=== PATIENT | male | born 1980 | race Caucasian/White ===

== ENCOUNTER 2019-06-05 07:14 | Inpatient (IN) ==
[2019-06-05 08:23] LABS: Basophils % 0.4 %; Eosinophils # 0.2 K/mcL (0.0-0.6); Eosinophils % 4.2 %; Hematocrit 36.5 % (37.5-50.1); Hemoglobin 12.8 g/dL (12.9-16.9); Immature Granulocytes % 0.4 % (0-4); Lymphocytes # 0.9 K/mcL (0.6-4.6); Mean Corpuscular HGB Conc 35.1 g/dL (31.6-35.5); Mean Corpuscular Hemoglobin 30.8 pg (28.0-33.3); Mean Corpuscular Volume 87.7 fL (83.0-100.0); Mean Platelet Volume 12.8 fL (9.4-12.4); Monocytes # 0.5 K/mcL (0.0-1.3); Monocytes % 8.5 %; Platelet Count 63 K/mcL (140-400); Red Blood Count 4.16 M/mcL (4.19-5.50); Red Cell Distribution Width 14.2 % (11.5-14.5); Segmented Neutrophils % 70.5 %; White Blood Count 5.7 K/mcL (4.3-11.1)
[2019-06-05 08:39] LABS: BUN/Creatinine Ratio 19 (6-26); Blood Urea Nitrogen 13 mg/dL (6-20); Calcium 8.9 mg/dL (8.6-10.3); Carbon Dioxide 24 mEq/L (23-29); Chloride 102 mEq/L (98-107); Glucose 123 mg/dL (70-105); Osmolality,Calculated 275 (280-300); Potassium 3.9 mEq/L (3.5-5.1); Sodium 132 mEq/L (136-145); eGFR For African Americans > 60 (> 60); eGFR For Non-African Americans > 60 (> 60)
[2019-06-05] MEDS ORDERED: Naloxone 0.4 MG/ML INJ IVP PRN (09:35)
[2019-06-05] MEDS ORDERED: Ketorolac 15 MG/ML VIAL IVP PRN (09:35)
[2019-06-05] MEDS ORDERED: Ondansetron 4 MG/2 ML VIAL IVP PRN (09:35)
[2019-06-05] MEDS: Nicotine 14 MG PATCH.TD24 TD SCH (14:06)
[2019-06-06 06:42] LABS: Hemoglobin 12.4 g/dL (12.9-16.9); Mean Corpuscular Hemoglobin 30.6 pg (28.0-33.3); Red Blood Count 4.05 M/mcL (4.19-5.50)
[2019-06-06 06:44] LABS: Basophils % 0.3 %; Eosinophils # 0.2 K/mcL (0.0-0.6); Eosinophils % 4.4 %; Hematocrit 35.4 % (37.5-50.1); Immature Granulocytes % 0.3 % (0-4); Immature Platelets 12.4 % (1.1-6.1); Lymphocytes # 0.8 K/mcL (0.6-4.6); Lymphocytes % 19.8 %; Mean Corpuscular Volume 87.4 fL (83.0-100.0); Mean Platelet Volume 12.9 fL (9.4-12.4); Monocytes # 0.4 K/mcL (0.0-1.3); Monocytes % 10.8 %; Neutrophils # 2.5 K/mcL (1.6-8.9); Platelet Count 56 K/mcL (140-400); Red Cell Distribution Width 14.1 % (11.5-14.5); Segmented Neutrophils % 64.4 %; White Blood Count 3.9 K/mcL (4.3-11.1)
[2019-06-06 07:04] LABS: BUN/Creatinine Ratio 18 (6-26); Blood Urea Nitrogen 11 mg/dL (6-20); Calcium 8.3 mg/dL (8.6-10.3); Carbon Dioxide 27 mEq/L (23-29); Chloride 103 mEq/L (98-107); Glucose 94 mg/dL (70-105); Magnesium 1.7 mg/dL (1.6-2.6); Osmolality,Calculated 283 (280-300); Potassium 4.2 mEq/L (3.5-5.1); Sodium 137 mEq/L (136-145); eGFR For African Americans > 60 (> 60); eGFR For Non-African Americans > 60 (> 60)
[2019-06-06] MEDS ORDERED: Cefepime HCl 2,000 MG in Water for inj. (sterile) 20 ML IVPB SCH (08:00)
[2019-06-06] MEDS: Cefepime HCl 2,000 MG in Water for inj. (sterile) 20 ML IVP SCH ×3 (09:22→23:50)
[2019-06-06] MEDS: Nicotine 14 MG PATCH.TD24 TD SCH (09:22)
[2019-06-06] MEDS: Ketorolac 30 MG/ML VIAL IVP PRN ×2 (09:25→15:29)
[2019-06-07 02:16] LABS: Basophils % 0.5 %; Immature Granulocytes % 0.2 % (0-4); Mean Corpuscular HGB Conc 34.9 g/dL (31.6-35.5); Mean Platelet Volume 12.7 fL (9.4-12.4); Red Blood Count 3.98 M/mcL (4.19-5.50)
[2019-06-07 02:18] LABS: Eosinophils # 0.1 K/mcL (0.0-0.6); Eosinophils % 3.2 %; Hemoglobin 12.2 g/dL (12.9-16.9); Immature Platelets 11.2 % (1.1-6.1); Lymphocytes # 0.8 K/mcL (0.6-4.6); Lymphocytes % 17.4 %; Mean Corpuscular Hemoglobin 30.7 pg (28.0-33.3); Mean Corpuscular Volume 87.9 fL (83.0-100.0); Monocytes # 0.4 K/mcL (0.0-1.3); Monocytes % 9.3 %; Platelet Count 54 K/mcL (140-400); Red Cell Distribution Width 13.7 % (11.5-14.5); Segmented Neutrophils % 69.4 %; White Blood Count 4.3 K/mcL (4.3-11.1)
[2019-06-07 02:37] LABS: BUN/Creatinine Ratio 20 (6-26); Blood Urea Nitrogen 13 mg/dL (6-20); Calcium 8.1 mg/dL (8.6-10.3); Carbon Dioxide 27 mEq/L (23-29); Chloride 103 mEq/L (98-107); Glucose 81 mg/dL (70-105); Magnesium 1.8 mg/dL (1.6-2.6); Osmolality,Calculated 283 (280-300); Sodium 137 mEq/L (136-145); eGFR For African Americans > 60 (> 60); eGFR For Non-African Americans > 60 (> 60)
[2019-06-07] MEDS ORDERED: Acetaminophen IV 1,000 MG/100 ML INFUS..BTL IVPB ONE (04:57)
[2019-06-07] MEDS: Calcium Gluconate 1gm/50mL 1 GM/50 ML BAG IVPB SCH ×2 (05:56→07:00)
[2019-06-07] MEDS: Nicotine 14 MG PATCH.TD24 TD SCH (11:29)
[2019-06-07] MEDS: Cefepime HCl 2,000 MG in Water for inj. (sterile) 20 ML IVP SCH (11:29)
[2019-06-07] MEDS ORDERED: Ketorolac 30 MG/ML VIAL IVP ONE (19:21)
[2019-06-08 03:14] LABS: Basophils % 0.4 %; Immature Granulocytes % 0.2 % (0-4)
[2019-06-08 03:15] LABS: Eosinophils # 0.2 K/mcL (0.0-0.6); Eosinophils % 3.1 %; Hemoglobin 12.2 g/dL (12.9-16.9); Immature Platelets 10.1 % (1.1-6.1); Lymphocytes # 0.8 K/mcL (0.6-4.6); Lymphocytes % 15.6 %; Mean Corpuscular HGB Conc 34.9 g/dL (31.6-35.5); Mean Corpuscular Hemoglobin 30.3 pg (28.0-33.3); Mean Corpuscular Volume 86.8 fL (83.0-100.0); Mean Platelet Volume 11.8 fL (9.4-12.4); Monocytes # 0.4 K/mcL (0.0-1.3); Monocytes % 8.4 %; Neutrophils # 3.5 K/mcL (1.6-8.9); Red Blood Count 4.03 M/mcL (4.19-5.50); Red Cell Distribution Width 13.7 % (11.5-14.5); Segmented Neutrophils % 72.3 %; White Blood Count 4.9 K/mcL (4.3-11.1)
[2019-06-08 03:23] LABS: Platelet Count 50 K/mcL (140-400)
[2019-06-08 03:55] LABS: BUN/Creatinine Ratio 18 (6-26); Blood Urea Nitrogen 12 mg/dL (6-20); Calcium 8.7 mg/dL (8.6-10.3); Carbon Dioxide 26 mEq/L (23-29); Chloride 104 mEq/L (98-107); Glucose 144 mg/dL (70-105); Magnesium 1.8 mg/dL (1.6-2.6); Osmolality,Calculated 288 (280-300); Sodium 138 mEq/L (136-145); eGFR For African Americans > 60 (> 60); eGFR For Non-African Americans > 60 (> 60)
[2019-06-08] MEDS: Nicotine 14 MG PATCH.TD24 TD SCH (09:55)
[2019-06-08] MEDS: Ibuprofen 400 MG TABLET PO PRN (14:24)
[2019-06-08] MEDS: Acetaminophen 325 MG TABLET PO PRN (22:56)
[2019-06-09] MEDS: Ibuprofen 400 MG TABLET PO PRN ×3 (00:25→17:05)
[2019-06-09 06:59] LABS: Basophils % 0.4 %; Immature Granulocytes % 0.2 % (0-4)
[2019-06-09 07:01] LABS: Eosinophils # 0.2 K/mcL (0.0-0.6); Eosinophils % 3.4 %; Hematocrit 36.7 % (37.5-50.1); Hemoglobin 12.9 g/dL (12.9-16.9); Immature Platelets 9.1 % (1.1-6.1); Lymphocytes # 0.8 K/mcL (0.6-4.6); Lymphocytes % 15.9 %; Mean Corpuscular HGB Conc 35.1 g/dL (31.6-35.5); Mean Corpuscular Hemoglobin 30.4 pg (28.0-33.3); Mean Corpuscular Volume 86.4 fL (83.0-100.0); Mean Platelet Volume 12.3 fL (9.4-12.4); Monocytes # 0.6 K/mcL (0.0-1.3); Neutrophils # 3.5 K/mcL (1.6-8.9); Red Blood Count 4.25 M/mcL (4.19-5.50); Red Cell Distribution Width 13.9 % (11.5-14.5); Segmented Neutrophils % 69.1 %
[2019-06-09 07:02] LABS: Platelet Count 54 K/mcL (140-400)
[2019-06-09 07:16] LABS: BUN/Creatinine Ratio 24 (6-26); Blood Urea Nitrogen 15 mg/dL (6-20); Calcium 8.7 mg/dL (8.6-10.3); Carbon Dioxide 27 mEq/L (23-29); Chloride 106 mEq/L (98-107); Glucose 100 mg/dL (70-105); Osmolality,Calculated 287 (280-300); Potassium 3.9 mEq/L (3.5-5.1); Sodium 138 mEq/L (136-145); eGFR For African Americans > 60 (> 60); eGFR For Non-African Americans > 60 (> 60)
[2019-06-09] MEDS ORDERED: cefTRIAXone 2,000 MG in 0.9 % Sodium Chloride Mini Bag 100 ML IVPB SCH (09:00)
[2019-06-09] MEDS: Nicotine 14 MG PATCH.TD24 TD SCH (09:10)
[2019-06-09] MEDS: cefTRIAXone 2,000 MG in Water for inj. (sterile) 20 ML IVP SCH (09:10)
[2019-06-09 16:18] LABS: Appearance,Synovial Fluid Bloody (Clear-Hazy); Color,Synovial Fluid Red (Straw)
[2019-06-09 16:42] LABS: Amphetamine Screen,Urine Negative ng/mL (Cutoff=1000); Barbiturate Screen,Urine Negative ng/mL (Cutoff=200); Benzodiazepines Screen,Urine Positive ng/mL (Cutoff=200); Cannabinoid Screen,Urine Negative ng/mL (Cutoff = 50); Cocaine Screen,Urine Negative ng/mL (Cutoff= 300); Opiate Screen,Urine Negative ng/mL (Cutoff=300); Phencyclidine Screen,Urine Negative ng/mL (Cutoff=25)
[2019-06-09] MEDS: Acetaminophen 325 MG TABLET PO PRN (20:45)
[2019-06-09] MEDS ORDERED: Ketorolac 15 MG/ML VIAL IVP ONE (21:19)
[2019-06-10 00:16] LABS: Basophils % 0.4 %; Eosinophils % 2.8 %
[2019-06-10 00:18] LABS: Eosinophils # 0.2 K/mcL (0.0-0.6); Hemoglobin 13.3 g/dL (12.9-16.9); Immature Granulocytes % 0.2 % (0-4); Immature Platelets 8.8 % (1.1-6.1); Lymphocytes # 0.8 K/mcL (0.6-4.6); Lymphocytes % 13.8 %; Mean Corpuscular HGB Conc 35.9 g/dL (31.6-35.5); Mean Corpuscular Volume 86.2 fL (83.0-100.0); Mean Platelet Volume 12.6 fL (9.4-12.4); Monocytes # 0.5 K/mcL (0.0-1.3); Red Blood Count 4.29 M/mcL (4.19-5.50); Red Cell Distribution Width 14.2 % (11.5-14.5); Segmented Neutrophils % 73.8 %; White Blood Count 5.4 K/mcL (4.3-11.1)
[2019-06-10 00:19] LABS: Platelet Count 60 K/mcL (140-400)
[2019-06-10 00:34] LABS: BUN/Creatinine Ratio 23 (6-26); Blood Urea Nitrogen 15 mg/dL (6-20); Calcium 8.8 mg/dL (8.6-10.3); Carbon Dioxide 28 mEq/L (23-29); Chloride 105 mEq/L (98-107); Glucose 127 mg/dL (70-105); Osmolality,Calculated 286 (280-300); Potassium 3.9 mEq/L (3.5-5.1); Sodium 137 mEq/L (136-145); eGFR For African Americans > 60 (> 60); eGFR For Non-African Americans > 60 (> 60)
[2019-06-10] MEDS: Nicotine 14 MG PATCH.TD24 TD SCH (08:40)
[2019-06-10] MEDS: cefTRIAXone 2,000 MG in Water for inj. (sterile) 20 ML IVP SCH (08:40)
[2019-06-10] MEDS: Acetaminophen 325 MG TABLET PO PRN ×3 (08:43→20:34)
[2019-06-11 04:35] LABS: BUN/Creatinine Ratio 23 (6-26); Blood Urea Nitrogen 17 mg/dL (6-20); Calcium 8.9 mg/dL (8.6-10.3); Carbon Dioxide 24 mEq/L (23-29); Chloride 105 mEq/L (98-107); Glucose 122 mg/dL (70-105); Osmolality,Calculated 285 (280-300); Potassium 3.8 mEq/L (3.5-5.1); Sodium 136 mEq/L (136-145); eGFR For African Americans > 60 (> 60); eGFR For Non-African Americans > 60 (> 60)
[2019-06-11] MEDS: cefTRIAXone 2,000 MG in Water for inj. (sterile) 20 ML IVP SCH (09:06)
[2019-06-11] MEDS: Acetaminophen 325 MG TABLET PO PRN ×2 (09:07→18:28)
[2019-06-11] MEDS: Nicotine 14 MG PATCH.TD24 TD SCH (09:07)
[2019-06-12] MEDS: Acetaminophen 325 MG TABLET PO PRN ×2 (03:03→11:52)
[2019-06-12 05:26] LABS: BUN/Creatinine Ratio 25 (6-26); Blood Urea Nitrogen 16 mg/dL (6-20); Calcium 8.6 mg/dL (8.6-10.3); Carbon Dioxide 23 mEq/L (23-29); Chloride 107 mEq/L (98-107); Glucose 119 mg/dL (70-105); Osmolality,Calculated 284 (280-300); Potassium 3.8 mEq/L (3.5-5.1); Sodium 136 mEq/L (136-145); eGFR For African Americans > 60 (> 60); eGFR For Non-African Americans > 60 (> 60)
[2019-06-12] MEDS: Nicotine 14 MG PATCH.TD24 TD SCH (08:04)
[2019-06-12] MEDS: cefTRIAXone 2,000 MG in Water for inj. (sterile) 20 ML IVP SCH (08:04)
[2019-06-13 04:02] LABS: Basophils % 0.4 %; Eosinophils # 0.1 K/mcL (0.0-0.6); Eosinophils % 2.9 %; Hemoglobin 12.7 g/dL (12.9-16.9); Immature Granulocytes % 0.2 % (0-4); Lymphocytes # 0.9 K/mcL (0.6-4.6); Lymphocytes % 19.1 %; Mean Corpuscular HGB Conc 35.3 g/dL (31.6-35.5); Mean Corpuscular Volume 87.8 fL (83.0-100.0); Mean Platelet Volume 11.3 fL (9.4-12.4); Monocytes # 0.5 K/mcL (0.0-1.3); Neutrophils # 3.2 K/mcL (1.6-8.9); Platelet Count 48 K/mcL (140-400); Red Cell Distribution Width 14.6 % (11.5-14.5); Segmented Neutrophils % 66.4 %; White Blood Count 4.8 K/mcL (4.3-11.1)
[2019-06-13 04:13] LABS: BUN/Creatinine Ratio 26 (6-26); Blood Urea Nitrogen 16 mg/dL (6-20); Calcium 8.7 mg/dL (8.6-10.3); Carbon Dioxide 26 mEq/L (23-29); Chloride 105 mEq/L (98-107); Glucose 86 mg/dL (70-105); Osmolality,Calculated 286 (280-300); Potassium 3.9 mEq/L (3.5-5.1); Sodium 138 mEq/L (136-145); eGFR For African Americans > 60 (> 60); eGFR For Non-African Americans > 60 (> 60)
[2019-06-13] MEDS: Nicotine 14 MG PATCH.TD24 TD SCH (08:54)
[2019-06-13] MEDS: cefTRIAXone 2,000 MG in Water for inj. (sterile) 20 ML IVP SCH (08:54)
[2019-06-13] MEDS: Acetaminophen 325 MG TABLET PO PRN (14:34)
[2019-06-13 14:35] VITALS: BP 133/82
[2019-06-13] MEDS ORDERED: Aminoglycoside Consult 1 EACH MC ONE (17:33)
== END 2019-06-13 17:34 | disposition home or self-care (01) | DRG 383 ==
LOC: 3ANU 07:14 → EMEROOARM 07:14 → SUATTDRO 09:48 → 3ANU 10:45
PROVIDERS: ADMIT Internal Medicine; ATTEND Internal Medicine